=== PATIENT | female | born 1985 | race Hispanic/Latino ===

== ENCOUNTER 2020-03-01 06:42 | Observation (INO) | payer BC ==
[~2020-03-01] VITALS: Ht 162.6 cm; Wt 73.5 kg
[2020-03-01] VITALS (21 sets, daily range): BP systolic 100–134; BP diastolic 59–81
[2020-03-01 07:28] LABS: BASOPHILS % (AUTO) 0.5 % (0.0-5.0); EOSINOPHILS % (AUTO) 1.8 % (0.0-8.0); HEMATOCRIT 31.1 % (36-48); LYMPHOCYTES % (AUTO) 26.4 % (21.0-51.0); MEAN CORPUSCULAR HEMOGLOBIN 28.8 pg (27.0-33.0); MEAN CORPUSCULAR HGB CONC 33.8 g/dL (32.0-36.0); MEAN CORPUSCULAR VOLUME 85.4 fL (79-99); MONOCYTES % (AUTO) 6.2 % (3.0-13.0); NEUTROPHILS % (AUTO) 64.6 % (40.0-77.0); PLATELET COUNT (AUTO) 343 K/uL (130-400); RED BLOOD CELL COUNT(AUTO) 3.64 MIL/uL (4.00-5.50); RED CELL DISTRIBUTION WIDTH 12.4 % (11.0-15.5); WHITE BLOOD COUNT (AUTO) 6.3 K/uL (4.8-10.8)
[2020-03-01 07:30] LABS: APPEARANCE,URINE Clear (CLEAR); BILIRUBIN,URINE Negative (NEGATIVE); COLOR,URINE Yellow (YELLOW); GLUCOSE, URINE (UA) Negative (NEGATIVE); KETONES,URINE Negative (NEGATIVE); LEUKOCYTE ESTERASE ,URINE Negative (NEGATIVE); NITRATE,URINE Negative (NEGATIVE); OCCULT BLOOD,URINE Large (NEGATIVE); PH,URINE 5.5 (5.0-8.0); PROTEIN,URINE Negative (NEGATIVE)
[2020-03-01 07:34] LABS: HCG,QUAL RESULT NEGATIVE (NEGATIVE)
[2020-03-01 07:37] LABS: AMPHET/METH SCREEN,URINE NEGATIVE (NEGATIVE); BARBITURATE SCREEN, URINE NEGATIVE (NEGATIVE); BENZODIAZEPINES SCREEN,URINE NEGATIVE (NEGATIVE); CANNABINOID SCREEN,URINE NEGATIVE (NEGATIVE); COCAINE SCREEN,URINE NEGATIVE (NEGATIVE); OPIATE SCREEN,URINE NEGATIVE (NEGATIVE); PHENCYCLIDINE SCREEN,URINE NEGATIVE (NEGATIVE)
[2020-03-01 07:39] LABS: CREATININE 0.9 mg/dL (0.5-1.5); POTASSIUM 3.4 mmol/L (3.5-5.1)
[2020-03-01 07:45] LABS: ALBUMIN 3.6 g/dL (3.5-5.0); BILIRUBIN,TOTAL 0.3 mg/dL (0.2-1.0); TOTAL PROTEIN, SERUM 6.9 g/dL (6.0-8.3)
[2020-03-01 07:48] LABS: BACTERIA,URINE Rare /HPF (None Seen); RBC,URINE 51-100 /HPF (0-1); WBC,URINE 0-1 /HPF (0-1)
[2020-03-01 07:50] LABS: INR 0.95 (0.85-1.15); PARTIAL THROMBOPLASTIN TIME 24.5 SEC (26.3-35.5); PROTHROMBIN TIME 10.3 SEC (9.6-11.6)
[2020-03-01 09:22] LABS: BASOPHILS % (AUTO) 0.3 % (0.0-5.0); EOSINOPHILS % (AUTO) 0.4 % (0.0-8.0); HEMATOCRIT 25.9 % (36-48); LYMPHOCYTES % (AUTO) 16.8 % (21.0-51.0); MEAN CORPUSCULAR HEMOGLOBIN 28.3 pg (27.0-33.0); MEAN CORPUSCULAR HGB CONC 32.8 g/dL (32.0-36.0); MEAN CORPUSCULAR VOLUME 86.3 fL (79-99); MONOCYTES % (AUTO) 4.8 % (3.0-13.0); NEUTROPHILS % (AUTO) 77.4 % (40.0-77.0); PLATELET COUNT (AUTO) 253 K/uL (130-400); RED CELL DISTRIBUTION WIDTH 12.4 % (11.0-15.5); WHITE BLOOD COUNT (AUTO) 6.9 K/uL (4.8-10.8)
[2020-03-01] MEDS ORDERED: SODIUM CHLORIDE 0.9% 1000ML 1,000 ML IV SCH (12:15)
[2020-03-01] MEDS ORDERED: ACETAMINOPHEN EXTRA STRENGTH 500 MG TABLET PO SCH ×2 (12:15)
[2020-03-01] MEDS ORDERED: DIPHENHYDRAMINE HCL 25 MG CAPSULE PO SCH ×2 (12:15)
[2020-03-01] MEDS ORDERED: SUCCINYLCHOLINE 200MG/10ML SYR ONE (14:11)
[2020-03-01] MEDS ORDERED: MIDAZOLAM HCL 1 MG/ML 2ML VIAL ONE (14:11)
[2020-03-01] MEDS ORDERED: DEXAMETHASONE SOD PHOSPHATE 10MG/ML 1ML VIAL ONE (14:11)
[2020-03-01] MEDS ORDERED: LIDOCAINE PF 2% 5ML ABBOJECT ONE (14:11)
[2020-03-01] MEDS ORDERED: ROCURONIUM 10MG/1ML SYR 10 MG/ML ML ONE (14:12)
[2020-03-01] MEDS ORDERED: NEOSTIGMINE 5MG/5ML SYR IV ONE (14:12)
[2020-03-01] MEDS ORDERED: GLYCOPYRROLATE 1 MG/5 ML SYRINGE ONE (14:12)
[2020-03-01] MEDS ORDERED: ONDANSETRON HCL 4 MG/2 ML VIAL ONE (14:12)
[2020-03-01] MEDS ORDERED: PROPOFOL 10 MG/ML 20ML VIAL IV ONE (14:12)
[2020-03-01] MEDS ORDERED: FENTANYL CITRATE PF 50 MCG/1 ML 2ML VIAL ONE ×2 (14:13→15:19)
--- NOTE | 2020-03-01 14:45 | NUR ---
TO OR PT TAKEN TO HOLDING AREA BY BED FOR EUA AND D&C. 1ST UNIT OF BLOOD TRANSFUSING AT THIS TIME.
[2020-03-01] MEDS ORDERED: CEFAZOLIN SODIUM 1 GM VIAL ONE (15:24)
[2020-03-01] MEDS ORDERED: TRANEXAMIC ACID 1000MG/10ML ONE (15:25)
[2020-03-01] MEDS ORDERED: DOCUSATE SODIUM 100 MG CAP PO PRN (15:45)
[2020-03-01] MEDS ORDERED: SIMETHICONE 80 MG TAB.CHEW PO PRN (15:45)
[2020-03-01] MEDS ORDERED: ONDANSETRON HCL 4 MG/2 ML VIAL IVP PRN (15:45)
[2020-03-01] MEDS ORDERED: ACETAMINOPHEN-CODEINE 300/30MG TAB PO PRN (15:45)
[2020-03-01] MEDS ORDERED: BISACODYL 10 MG SUPP.RECT RC PRN (15:45)
[2020-03-01] MEDS ORDERED: MEPERIDINE-PF 75 MG/ML SYG IM PRN (15:45)
[2020-03-01] MEDS ORDERED: PROMETHAZINE HCL 25 MG/ML 1ML AMPULE IM PRN ×2 (15:45)
[2020-03-01] MEDS: SODIUM CHLORIDE 0.9% 1000ML 1,000 ML IV SCH ×2 (17:15→23:41)
[2020-03-01] MEDS: CALDOLOR 800MG+NS 250ML 250 ML IV SCH (23:24)
[2020-03-02 03:29] VITALS: BP 105/51
[2020-03-02 04:54] LABS: HEMATOCRIT 30.3 % (36-48)
[2020-03-02] MEDS: CALDOLOR 800MG+NS 250ML 250 ML IV SCH (07:25)
[2020-03-02 07:41] VITALS: BP 106/74
--- NOTE | 2020-03-02 09:10 | NUR ---
Verbal and written discharge instructions given, informed of follow up appointment, prescription given, all questions answered, informed to call the doctor for future concerns, pt voiced understanding to all things discussed. Addendum: 03/02/20 at 1007 by JANETH STEVEN RN Amended: Links added.
--- NOTE | 2020-03-02 09:55 | NUR ---
pt is dismissed in stable condition, brought to private car via wheelchair by Abeba Rios pcp Addendum: 03/02/20 at 1008 by JANETH STEVEN RN Amended: Links added.
[2020-03-02] MEDS ORDERED: IBUPROFEN 600 MG TABLET PO PRN (14:00)
== END 2020-03-02 09:55 | disposition home or self-care (01) ==
LOC: EDH 06:42 → EDHIP 11:20 → WSH 11:55
PROVIDERS: ADMIT Obstetrics & Gynecology; ATTEND Obstetrics & Gynecology
DX: N92.1 Excessive and frequent menstruation with irregular cycle (principal); D62 Acute posthemorrhagic anemia
CPT/HCPCS: 36415 ×2; 36430; 58120; 76856; 80053; 80305; 81001; 81025; 84702; 85014; 85018; 85025 ×2; 85610; 85730; 86850; 86900; 86901; 86922; 93005; 96365; 96366; 99285; A4222; A4223; A4351; A4600; A4649; A4930 ×2; G0378 ×14; J0330; J0690; J1100; J1741 ×2; J2001; J2250; J2405; J2704; J2710; J3010 ×2; J3490 ×2; J7030; P9016 ×2; Q0163

== ENCOUNTER → 2023-01-02 | Outpatient (CLI) | payer BC ==
[2023-01-02 16:34] LABS: CREATININE 0.7 mg/dL (0.5-1.5); MAGNESIUM 2.1 mg/dL (1.80-2.40); PHOSPHORUS 3.6 mg/dL (2.5-4.9); POTASSIUM 3.6 mmol/L (3.5-5.1)
== END | disposition home or self-care (01) ==
LOC: LAB 14:47
PROVIDERS: ATTEND Internal Medicine Cardiovascular Disease
DX: R00.2 Palpitations (principal)
CPT/HCPCS: 36415; 80048; 83735; 84100

== ENCOUNTER 2023-03-21 07:37 | Day surgery (SDC) | payer BC ==
[2023-03-19 11:48] LABS: BASOPHILS % (AUTO) 0.6 % (0.0-5.0); EOSINOPHILS % (AUTO) 1.9 % (0.0-8.0); HEMATOCRIT 36.6 % (36-48); LYMPHOCYTES % (AUTO) 30.5 % (21.0-51.0); MEAN CORPUSCULAR HEMOGLOBIN 28.8 pg (27.0-33.0); MEAN CORPUSCULAR HGB CONC 32.8 g/dL (32.0-36.0); MONOCYTES % (AUTO) 7.1 % (3.0-13.0); NEUTROPHILS % (AUTO) 59.5 % (40.0-77.0); PLATELET COUNT (AUTO) 299 K/uL (130-400); RED BLOOD CELL COUNT(AUTO) 4.16 MIL/uL (4.00-5.50); RED CELL DISTRIBUTION WIDTH 13.2 % (11.0-15.5); WHITE BLOOD COUNT (AUTO) 5.2 K/uL (4.8-10.8)
[2023-03-19 11:53] LABS: CREATININE 0.6 mg/dL (0.5-1.5); POTASSIUM 4.3 mmol/L (3.5-5.1)
[2023-03-19 11:57] LABS: PROTHROMBIN TIME 10.9 SEC (9.6-11.6)
[2023-03-19 11:58] LABS: PARTIAL THROMBOPLASTIN TIME 29.3 SEC (26.3-35.5)
[2023-03-19 12:01] VITALS: BP 109/70
[~2023-03-21] VITALS: Ht 163.8 cm; Wt 70.6 kg
[~2023-03-21 07:37] MED LIST: 0.9%NACL 1000ML 1,000 ML IV SCH; PROP40TA7 PO
[2023-03-21 07:42] VITALS: BP 123/87
[2023-03-21] MEDS ORDERED: MIDAZOLAM HCL 1 MG/ML 2ML VIAL ONE ×5 (15:41→17:44)
[2023-03-21] MEDS ORDERED: MEPERIDINE-PF 25 MG/ML SYG ONE ×5 (15:41→17:44)
[2023-03-21] MEDS ORDERED: HEPARIN 10,000 UNIT/10ML (1,000 UNIT/ML) VIAL ONE (15:41)
[2023-03-21] MEDS ORDERED: LIDOCAINE HCL 400MG/20ML VIAL ONE ×2 (15:41→16:00)
[2023-03-21] MEDS ORDERED: ISOPROTERENOL HCL 0.2 MG/ML AMP/VIAL/BAG ONE (16:50)
[2023-03-21 18:50] VITALS: BP 103/63
[2023-03-21 19:05] VITALS: BP 113/71
[2023-03-21 19:20] VITALS: BP 107/66
[2023-03-21 19:35] VITALS: BP 102/64
== END 2023-03-21 22:47 | disposition home or self-care (01) ==
LOC: DAH 07:37
PROVIDERS: ATTEND Internal Medicine Cardiovascular Disease
DX: I47.1 Supraventricular tachycardia (principal); Z79.01 Long term (current) use of anticoagulants; Z98.890 Other specified postprocedural states; Z83.3 Family history of diabetes mellitus; Z82.49 Family history of ischemic heart disease and other diseases of the circulatory system; Z83.42 Family history of familial hypercholesterolemia; Z80.3 Family history of malignant neoplasm of breast; Z79.899 Other long term (current) drug therapy
CPT/HCPCS: 80048; 85025; 85610; 85730; 36415; 93005; 93653; 93623; C1894 ×6; C1730 ×4; A4649 ×2; C1732; J3490 ×3; J7030; J1644 ×2; J2250 ×5; J2175 ×5; A4215; A4222; A4221; A4663; A4216; A4606; A4223 ×3; 99156; 99157